=== PATIENT | female | born 1995 | race Caucasian/White ===

== ENCOUNTER 2020-06-20 12:51 | Emergency (ER) | payer MEDICAID ==
[~2020-06-20] VITALS: Ht 114.3 cm; Wt 54.4 kg
[2020-06-20 12:59] VITALS: BP 139/76
--- NOTE | 2020-06-20 13:08 | NUR ---
PT W/C ASSISTED TO BED 6.
--- NOTE | 2020-06-20 13:23 | NUR ---
XRAY AT BEDSIDE
--- NOTE | 2020-06-20 13:25 | NUR ---
/ BIB VIA W/C BY CAREGIVER. PER CAREGIVER PT FELL TUESDAY AFTERNOON, PT FELL FORWARD WITH WHEELCHAIR. DENIES LOC. DENIES CHANGES IN MENTATION/APPETITE SINCE TUESDAY, PT AT BASELINE. PER CAREGIVER PERSONNEL TO SHOW UP AT HOME FOR XRAY OF RLE BUT DID NOT SHOW UP. PT WITH DEVELOPMENTAL DELAY FROM [employer]. PT PRESENTS WITH BRUISE ON THE RIGHT FISHER. HX SEIZURE,HEMORRHAGIC HYDROCEPHALUS S/P SHUNT PLACEMENT
--- NOTE | 2020-06-20 13:45 | NUR ---
DR MALIK AT BEDSIDE
--- NOTE | 2020-06-20 14:29 | NUR ---
Dr. Ruff is reevaluating the patient at bedside.
[2020-06-20 14:44] VITALS: BP 132/72
--- NOTE | 2020-06-20 14:44 | NUR ---
Patient discharged with v/s stable. Written and verbal after care instructions given and explained. Patient verbalized understanding. Wheel Chair Assisted with by caregiver. All questions addressed prior to discharge. Advised to follow up with PMD.
== END 2020-06-20 14:44 | disposition home or self-care (01) ==
LOC: MED 12:51
DX: S82.301A Unspecified fracture of lower end of right tibia, initial encounter for closed fracture (principal); G80.9 Cerebral palsy, unspecified; R62.59 Other lack of expected normal physiological development in childhood; Z88.2 Allergy status to sulfonamides; Z88.8 Allergy status to other drugs, medicaments and biological substances; W18.39XA Other fall on same level, initial encounter; Y93.89 Activity, other specified; Y92.89 Other specified places as the place of occurrence of the external cause; Y99.8 Other external cause status
CPT/HCPCS: 29505; 73590; 99283; Q0092